=== PATIENT | male | born 1975 | race Two or more races ===

== ENCOUNTER 2019-06-03 13:18 | Emergency (ER) | payer MEDICAID ==
[~2019-06-03] VITALS: Ht 185.4 cm; Wt 101.1 kg
--- NOTE | 2019-06-03 14:02 | NUR ---
BLEEDING CONTROLLED TO R EAR LAC. VSS. PT A&OX4 AT THIS TIME. FRIEND AT BS, STATES PT DID LOSE CONSCIOUSNESS FOR ABOUT 10 SECONDS. PT HAS HX NIDDM, ON METFORMIN, BS 204.
[2019-06-03] MEDS ORDERED: LIDOCAINE-MPF 1%, 5ML ONE (14:10)
[2019-06-03 14:26] LABS: MEAN CORPUSCULAR HEMOGLOBIN 22.2 pg (27.5-34.5); MEAN CORPUSCULAR HGB CONC 31.2 g/dL (33.2-36.2); MEAN CORPUSCULAR VOLUME 71.1 fL (81-97); MEAN PLATELET VOLUME 9.1 fL (7.4-10.4); PLATELET COUNT 464 x10^3/uL (130-400)
[2019-06-03] MEDS ORDERED: LIDOCAINE-MPF 1%, 5ML INFIL ONE (14:30)
[2019-06-03 14:37] LABS: ALBUMIN 3.3 g/dL (3.4-5.0); ANION GAP 7 mmol/L (5-15); CALCIUM 8.9 mg/dL (8.5-10.1); CHLORIDE 109 mmol/L (98-107); CREATININE 1.05 mg/dL (0.7-1.3)
--- NOTE | 2019-06-03 14:46 | NUR ---
PT TO CT VIA [facility].
[2019-06-03 14:48] LABS: BASOPHILS # (AUTO) 0.07 x10^3/uL (0-0.1); BASOPHILS % (AUTO) 1 % (0-1); EOSINOPHILS # (AUTO) 0.03 x10^3/uL (0-0.4); EOSINOPHILS % (AUTO) 0 % (1-7); LYMPHOCYTES # (AUTO) 2.09 x10^3/uL (1-3.4); LYMPHOCYTES % (AUTO) 15 % (22-44); MD SCAN; MONOCYTES # (AUTO) 2.11 x10^3/uL (0.2-0.8); MONOCYTES % (AUTO) 15 % (2-9); NEUTROPHILS # (AUTO) 9.86 x10^3/uL (1.8-6.8); NEUTROPHILS % (AUTO) 70 % (42-75)
--- NOTE | 2019-06-03 15:27 | NUR ---
R EAR LACERATION NUMBED BY ERP AND IRRIGATED BY SHIPPING ROOM HELPER. PT TOLERATED WELL.
[2019-06-03] MEDS ORDERED: HYDROcodone/APAP 5/325 TABLET ONE (16:05)
[2019-06-03 16:14] VITALS: BP 114/88
--- NOTE | 2019-06-03 16:16 | NUR ---
D/C INSTRUCTIONS, MEDS & F/U APPT RV'WD WITH PT, HE VERBALIZES UNDERSTANDING. RX GIVEN X2. PT REFUSES TO WEAR ELIZABET DRESSING OUT OF ED, STATES HE WILL RE-DRESS WOUND AT HOME. ADAPTIC, STERILE GAUZE, AND TAPE PROVIDED TO PT TO TAKE HOME. PT AMBULATED OUT OF ED WITH SIGNIFICANT OTHER WITHOUT DIFFICULTY.
[2019-06-03] MEDS ORDERED: HYDROcodone/APAP 5/325 TABLET PO ONE (16:30)
== END 2019-06-03 16:19 | disposition home or self-care (01) ==
LOC: ED 15:21
DX: S01.311A Laceration without foreign body of right ear, initial encounter (principal); R55 Syncope and collapse; E11.9 Type 2 diabetes mellitus without complications; F17.200 Nicotine dependence, unspecified, uncomplicated; Z90.81 Acquired absence of spleen; W18.00XA Striking against unspecified object with subsequent fall, initial encounter; Y93.89 Activity, other specified; Y92.511 Restaurant or cafe as the place of occurrence of the external cause; Y99.8 Other external cause status
CPT/HCPCS: 13152; 70450; 80048; 82040; 82962; 85025; 93005; 99285

== ENCOUNTER 2019-06-11 06:35 | Emergency (ER) | payer MEDICAID ==
[~2019-06-11] VITALS: Ht 185.4 cm; Wt 100.2 kg
[2019-06-11 06:38] VITALS: BP 136/77
== END 2019-06-11 09:30 | disposition home or self-care (01) ==
LOC: ED 08:49
DX: S02.2XXA Fracture of nasal bones, initial encounter for closed fracture (principal); S02.40CA Maxillary fracture, right side, initial encounter for closed fracture; S01.01XA Laceration without foreign body of scalp, initial encounter; E11.9 Type 2 diabetes mellitus without complications; Y04.0XXA Assault by unarmed brawl or fight, initial encounter; Y93.89 Activity, other specified; Y92.410 Unspecified street and highway as the place of occurrence of the external cause; Y99.8 Other external cause status
CPT/HCPCS: 12032; 70450; 70486; 99284